=== PATIENT | female | born 1985 | race Caucasian/White ===

== ENCOUNTER 2021-12-10 07:32 | Inpatient (IN) | payer MEDICAID ==
[~2021-12-10] VITALS: Ht 154.9 cm; Wt 66.7 kg
[2021-12-10] MEDS ORDERED: METHYLERGONOVINE MALEATE 0.2 MG/ML IM PRN (08:15)
[2021-12-10] MEDS ORDERED: NALOXONE HCL 0.4 MG/ML 1ML VIAL IM PRN (08:15)
[2021-12-10] MEDS ORDERED: CARBOPROST TROMETHAMINE 250 MCG/ML AMPUL IM PRN (08:15)
[2021-12-10] MEDS ORDERED: DEXT 5%/LR + PITOCIN 20UNITS/L 1,000 ML IV SCH ×2 (08:30→15:45)
[2021-12-10 09:03] LABS: BASOPHILS % 0.5 % (0.0-2.0); HEMATOCRIT. 37.4 % (36.0-48.0); HEMOGLOBIN. 12.2 g/dL (12.0-16.0); LYMPHOCYTES % 21.9 % (20.0-50.0); MEAN CORPUSCULAR HEMOGLOBIN 26.1 pg (28.0-32.0); MEAN CORPUSCULAR VOLUME 80.1 fL (81.0-99.0); MEAN PLATELET VOLUME 8.4 fl (7.4-10.4); MONOCYTES % 6.3 % (2.0-8.0); NEUTROPHILS % 70.3 % (40.0-76.0); PLATELET 300 x1000/uL (130-400); RED BLOOD CELL COUNT 4.67 mill/uL (4.2-5.4); RED CELL DISTRIBUTION WIDTH 15.1 % (11.6-14.6)
[2021-12-10 09:04] LABS: CLARITY URINE CLOUDY (CLEAR); COLOR URINE YELLOW (YELLOW); KETONES URINE NEGATIVE (NEGATIVE); LEUKOCYTE ESTERASE URINE 2+ (NEGATIVE); NITRITE URINE NEGATIVE (NEGATIVE); OCCULT BLOOD URINE NEGATIVE (NEGATIVE); PROTEIN URINE NEGATIVE (NEGATIVE); UROBILINOGEN URINE 0.2 E.U./dL (0.2-1.0)
[2021-12-10 09:15] LABS: INR 0.9; PROTHROMBIN TIME 9.9 sec (9.6-11.0)
[2021-12-10] MEDS ORDERED: FENTANYL CITRATE/PF 50MCG/ML 2ML VIAL ONE (09:20)
[2021-12-10] MEDS ORDERED: MORPHINE SULFATE/PF 1MG/ML 10ML AMP ONE (09:20)
[2021-12-10] MEDS ORDERED: PHENYLEPHRINE HCL 10 MG/ML 1ML (IV VIAL) IV ONE (09:21)
[2021-12-10] MEDS ORDERED: CEFAZOLIN SODIUM 1000MG/VIAL ONE (09:21)
[2021-12-10] MEDS ORDERED: ONDANSETRON HCL 4MG/2ML INJ ONE (09:21)
[2021-12-10] MEDS ORDERED: DIPHENHYDRAMINE 50MG/ML VIAL ONE (09:21)
[2021-12-10] MEDS ORDERED: EPHEDRINE SULFATE 50MG/ML VIAL ONE (09:21)
[2021-12-10] MEDS ORDERED: OXYTOCIN 10 UNITS/ML 1ML ONE (09:21)
[2021-12-10 09:25] LABS: *AMPHETAMINES SCREEN URINE NEGATIVE (NEGATIVE); *BARBITURATES SCREEN URINE NEGATIVE (NEGATIVE); *BENZODIAZEPINES SCREEN URINE NEGATIVE (NEGATIVE); *COCAINE SCREEN URINE NEGATIVE (NEGATIVE); CANNABINOID URINE SCREEN NEGATIVE (NEGATIVE); METHADONE URINE SCREEN NEGATIVE (NEGATIVE); OPIATES URINE SCREEN NEGATIVE (NEGATIVE); PHENCYCLIDINE URINE SCREEN NEGATIVE (NEGATIVE)
[2021-12-10] MEDS: LACTATED RINGERS 1,000 ML IV SCH ×2 (09:53→12:44)
[2021-12-10 11:25] LABS: HEPATITIS B SURFACE ANTIGEN NEGATIVE
[2021-12-10] MEDS ORDERED: KETOROLAC 60MG/2ML VIAL IM ONE (14:20)
[2021-12-10] MEDS ORDERED: NALOXONE HCL 0.4 MG/ML 1ML VIAL IV PRN (14:45)
[2021-12-10] MEDS ORDERED: DIPHENHYDRAMINE 50MG/ML VIAL IV PRN (14:45)
[2021-12-10] MEDS ORDERED: BUTORPHANOL TARTRATE 2 MG/ML VIAL IV PRN (14:45)
[2021-12-10] MEDS ORDERED: KETOROLAC 30MG/ML VIAL IV SCH (15:00)
[2021-12-10] MEDS ORDERED: IBUPROFEN 400MG TABLET PO PRN (15:45)
[2021-12-10] MEDS ORDERED: DIPHENHYDRAMINE 25MG CAPSULE PO PRN (15:45)
[2021-12-10] MEDS ORDERED: HYDROCODONE/ACETAMINOPHEN 5/325MG TABLET PO PRN (15:45)
[2021-12-10] MEDS ORDERED: ONDANSETRON HCL 4MG/2ML INJ IV PRN (15:45)
[2021-12-10] MEDS ORDERED: LANOLIN OINT 7GM TUBE TOP PRN (15:45)
[2021-12-10] MEDS ORDERED: RHO(D) IMMUNE GLOBULIN 300 MCG/SYR IM PRN (15:45)
[2021-12-10 17:30] VITALS: BP 101/63
[2021-12-10 18:00] VITALS: BP 100/56
[2021-12-10 20:00] VITALS: BP 105/60
[2021-12-10] MEDS: DOCUSATE SODIUM 100MG CAPSULE PO SCH (21:00)
[2021-12-11] VITALS: BP 106/70
[2021-12-11 03:56] VITALS: BP 95/51
[2021-12-11 07:16] LABS: BASOPHILS % 0.1 % (0.0-2.0); EOSINOPHILS % 0.3 % (0.0-5.0); HEMATOCRIT. 26.7 % (36.0-48.0); HEMOGLOBIN. 8.7 g/dL (12.0-16.0); LYMPHOCYTES % 9.1 % (20.0-50.0); MEAN CORPUSCULAR HEMOGLOBIN 26.5 pg (28.0-32.0); MONOCYTES % 5.7 % (2.0-8.0); NEUTROPHILS % 84.8 % (40.0-76.0); PLATELET 227 x1000/uL (130-400); RED BLOOD CELL COUNT 3.29 mill/uL (4.2-5.4); RED CELL DISTRIBUTION WIDTH 15.1 % (11.6-14.6)
[2021-12-11 08:00] VITALS: BP 95/52
[2021-12-11] MEDS ORDERED: PRENATAL VIT/FE FUMARATE/FA TABLET PO SCH (09:00)
[2021-12-11] MEDS: IBUPROFEN 800MG TABLET PO PRN (11:41)
[2021-12-11] MEDS: HYDROCODONE/ACETAMINOPHEN 5/325MG TABLET PO PRN ×2 (13:58→19:58)
[2021-12-11 16:00] VITALS: BP 91/52
[2021-12-11] MEDS: DOCUSATE SODIUM 100MG CAPSULE PO SCH (19:56)
[2021-12-11 21:09] VITALS: BP 97/61
[2021-12-12] VITALS: BP 116/78
[2021-12-12] MEDS: IBUPROFEN 800MG TABLET PO PRN ×3 (00:23→12:45)
[2021-12-12 04:53] VITALS: BP 92/57
[2021-12-12] MEDS ORDERED: IBUP-2030 PO (06:26)
[2021-12-12 08:00] VITALS: BP 94/57
[2021-12-12 12:45] VITALS: BP 94/57
== END 2021-12-12 13:40 | disposition home or self-care (01) | DRG 540 ==
LOC: OBSVTOIN 07:32 → 8 EST LDRP 07:32 → 8EST 17:25
PROVIDERS: ADMIT Obstetrics & Gynecology; ATTEND Obstetrics & Gynecology
PROC: 10D00Z1 Extraction of Products of Conception, Low, Open Approach (ICD-10-PCS; principal; 2021-12-10)
DX: O34.211 Maternal care for low transverse scar from previous cesarean delivery (principal); D62 Acute posthemorrhagic anemia; O90.81 Anemia of the puerperium; Z37.0 Single live birth; Z3A.39 39 weeks gestation of pregnancy; Z20.822 Contact with and (suspected) exposure to COVID-19
CPT/HCPCS: 36415; 80305; 81003; 85025; 86592; 86703; 86762; 86850; 86900; 86920; 87340; 87426; 88307; 99281; C1893; G0378; J0690; J1200; J1885; J2274; J2370; J2405; J2590; J3010; J3490; J7120; Q0163

== ENCOUNTER 2022-11-18 07:54 | Inpatient (IN) | payer MEDICAID, OTHER ==
[~2022-11-18] VITALS: Ht 154.9 cm; Wt 67.1 kg
[~2022-11-18 07:54] MED LIST: IBUP-2030 PO
[2022-11-18] MEDS ORDERED: METHYLERGONOVINE MALEATE 0.2 MG/ML IM PRN (09:15)
[2022-11-18] MEDS ORDERED: OXYTOCIN 30 UNITS/500ML NS PMX 500 ML IV SCH ×2 (09:15→14:30)
[2022-11-18] MEDS ORDERED: MISOPROSTOL 100MCG TABLET VG SCH (09:15)
[2022-11-18] MEDS ORDERED: NALOXONE HCL 0.4 MG/ML 1ML VIAL IM PRN (09:15)
[2022-11-18] MEDS ORDERED: CARBOPROST TROMETHAMINE 250 MCG/ML AMPUL IM PRN (09:15)
[2022-11-18] MEDS ORDERED: MORPHINE SULFATE/PF 1MG/ML 10ML AMP ONE (09:48)
[2022-11-18] MEDS ORDERED: MORPHINE SULFATE 2 MG/ML CPJ (NOT FOR IM USE) IV PRN (10:15)
[2022-11-18] MEDS ORDERED: NALOXONE HCL 0.4 MG/ML 1ML VIAL IV PRN (10:15)
[2022-11-18] MEDS ORDERED: FENTANYL CITRATE/PF 50MCG/ML 2ML VIAL IV PRN (10:15)
[2022-11-18 10:23] LABS: BASOPHILS % 0.5 % (0.0-2.0); EOSINOPHILS % 1.4 % (0.0-5.0); HEMATOCRIT. 38.1 % (36.0-48.0); HEMOGLOBIN. 12.4 g/dL (12.0-16.0); LYMPHOCYTES % 23.7 % (20.0-50.0); MEAN CORPUSCULAR HEMOGLOBIN 27.2 pg (28.0-32.0); MEAN CORPUSCULAR VOLUME 83.4 fL (81.0-99.0); MEAN PLATELET VOLUME 8.1 fl (7.4-10.4); MONOCYTES % 6.5 % (2.0-8.0); NEUTROPHILS % 67.9 % (40.0-76.0); PLATELET 258 x1000/uL (130-400); RED BLOOD CELL COUNT 4.57 mill/uL (4.2-5.4); RED CELL DISTRIBUTION WIDTH 14.9 % (11.6-14.6)
[2022-11-18 10:28] LABS: CLARITY URINE CLEAR (CLEAR); COLOR URINE YELLOW (YELLOW); KETONES URINE NEGATIVE (NEGATIVE); LEUKOCYTE ESTERASE URINE TRACE (NEGATIVE); NITRITE URINE NEGATIVE (NEGATIVE); OCCULT BLOOD URINE NEGATIVE (NEGATIVE); PH URINE 7.5 (4.5-8.0); PROTEIN URINE NEGATIVE (NEGATIVE); SPECIFIC GRAVITY URINE 1.015 (1.005-1.030); UROBILINOGEN URINE 0.2 E.U./dL (0.2-1.0)
[2022-11-18 10:35] LABS: INR 0.9; PARTIAL THROMBOPLASTIN TIME 24.5 sec (23.4-31.0); PROTHROMBIN TIME 9.8 sec (9.6-11.0)
[2022-11-18] MEDS ORDERED: CEFAZOLIN SODIUM 1000MG/VIAL ONE (10:44)
[2022-11-18] MEDS ORDERED: DEXAMETHASONE 4MG/ML 1ML VIAL ONE (10:44)
[2022-11-18] MEDS ORDERED: KETOROLAC 60MG/2ML VIAL IM ONE (10:44)
[2022-11-18] MEDS ORDERED: ONDANSETRON HCL 4MG/2ML INJ ONE (10:44)
[2022-11-18 10:53] LABS: *AMPHETAMINES SCREEN URINE NEGATIVE (NEGATIVE); *BARBITURATES SCREEN URINE NEGATIVE (NEGATIVE); *BENZODIAZEPINES SCREEN URINE NEGATIVE (NEGATIVE); *COCAINE SCREEN URINE NEGATIVE (NEGATIVE); CANNABINOID URINE SCREEN NEGATIVE (NEGATIVE); METHADONE URINE SCREEN NEGATIVE (NEGATIVE); OPIATES URINE SCREEN NEGATIVE (NEGATIVE); PHENCYCLIDINE URINE SCREEN NEGATIVE (NEGATIVE)
[2022-11-18 11:11] LABS: HEPATITIS B SURFACE ANTIGEN NEGATIVE
[2022-11-18] MEDS ORDERED: TERBUTALINE SULFATE 1MG/ML VIAL SUBCUT NR (11:15)
[2022-11-18] MEDS: LACTATED RINGERS 1,000 ML IV SCH ×3 (11:18→20:24)
[2022-11-18] MEDS ORDERED: OXYTOCIN 10 UNITS/ML 1ML ONE (13:50)
[2022-11-18] MEDS ORDERED: IBUPROFEN 400MG TABLET PO PRN (14:30)
[2022-11-18] MEDS ORDERED: RHO(D) IMMUNE GLOBULIN 300 MCG/SYR IM PRN (14:30)
[2022-11-18] MEDS ORDERED: DIPHENHYDRAMINE 25MG CAPSULE PO PRN (14:30)
[2022-11-18] MEDS ORDERED: LANOLIN OINT 7GM TUBE TOP PRN (14:30)
[2022-11-18] MEDS ORDERED: ONDANSETRON HCL 4MG/2ML INJ IV PRN (14:30)
[2022-11-18 16:15] VITALS: BP 102/53
[2022-11-18 16:30] VITALS: BP 100/52
[2022-11-18 16:45] VITALS: BP 106/58
[2022-11-18] MEDS ORDERED: NALOXONE HCL 0.4MG/ML VIAL IV PRN (16:45)
[2022-11-18 20:00] VITALS: BP 97/53
[2022-11-18] MEDS ORDERED: DOCUSATE SODIUM 100MG CAPSULE PO SCH (21:00)
[2022-11-19 00:01] VITALS: BP 96/55
[2022-11-19] MEDS: KETOROLAC 30MG/ML VIAL IV PRN ×3 (00:09→11:13)
[2022-11-19 04:00] VITALS: BP 95/51
[2022-11-19] MEDS: LACTATED RINGERS 1,000 ML IV SCH (04:04)
[2022-11-19 07:55] LABS: BASOPHILS % 0.4 % (0.0-2.0); EOSINOPHILS % 0.6 % (0.0-5.0); HEMATOCRIT. 25.2 % (36.0-48.0); HEMOGLOBIN. 8.3 g/dL (12.0-16.0); LYMPHOCYTES % 17.9 % (20.0-50.0); MEAN CORPUSCULAR HEMOGLOBIN 27.6 pg (28.0-32.0); MEAN CORPUSCULAR VOLUME 83.4 fL (81.0-99.0); MEAN PLATELET VOLUME 8.2 fl (7.4-10.4); MONOCYTES % 7.6 % (2.0-8.0); NEUTROPHILS % 73.5 % (40.0-76.0); PLATELET 221 x1000/uL (130-400); RED BLOOD CELL COUNT 3.02 mill/uL (4.2-5.4); RED CELL DISTRIBUTION WIDTH 14.7 % (11.6-14.6)
[2022-11-19 08:00] VITALS: BP 104/61
[2022-11-19] MEDS: PRENATAL VIT/FE FUMARATE/FA TABLET PO SCH (09:14)
[2022-11-19 12:00] VITALS: BP 97/61
[2022-11-19] MEDS: HYDROCODONE/ACETAMINOPHEN 5/325MG TABLET PO PRN ×2 (15:52→20:00)
[2022-11-19 16:00] VITALS: BP 105/65
[2022-11-19 19:15] VITALS: BP 102/61
[2022-11-20] MEDS: HYDROCODONE/ACETAMINOPHEN 5/325MG TABLET PO PRN ×3 (01:42→12:02)
[2022-11-20 04:00] VITALS: BP 103/62
[2022-11-20] MEDS ORDERED: IBUP-2028 PO (08:08)
[2022-11-20] MEDS: PRENATAL VIT/FE FUMARATE/FA TABLET PO SCH (09:00)
[2022-11-20 11:00] VITALS: BP 110/66
== END 2022-11-20 12:30 | disposition home or self-care (01) | DRG 540 ==
LOC: OBSVTOIN 07:54 → 8 EST LDRP 07:54 → 8EST 16:41
PROVIDERS: ADMIT Obstetrics & Gynecology; ATTEND Obstetrics & Gynecology
PROC: 10D00Z1 Extraction of Products of Conception, Low, Open Approach (ICD-10-PCS; principal; 2022-11-18)
DX: O34.211 Maternal care for low transverse scar from previous cesarean delivery (principal); D62 Acute posthemorrhagic anemia; O99.02 Anemia complicating childbirth; Z37.0 Single live birth; Z3A.38 38 weeks gestation of pregnancy; Z20.822 Contact with and (suspected) exposure to COVID-19
CPT/HCPCS: 36415; 80305; 81003; 85025; 86592; 86703; 86762; 86850; 86900; 86920; 87340; 87426; 88307; 99281; J0690; J1100; J1885; J2274; J2405; J3105; J7120; A4315